=== PATIENT | male | born 1995 | race Caucasian/White ===

== ENCOUNTER 2017-11-09 00:39 | Emergency (ER) | payer BC ==
[~2017-11-09] VITALS: Ht 177.8 cm; Wt 81.8 kg
[2017-11-09 00:44] VITALS: BP 137/88; PULSE 88; TEMP 97.6
== END 2017-11-09 01:36 | disposition home or self-care (01) ==
LOC: COL.ER 00:39
DX: S61.211A Laceration without foreign body of left index finger without damage to nail, initial encounter (principal); W26.9XXA Contact with unspecified sharp object(s), initial encounter; Y92.89 Other specified places as the place of occurrence of the external cause

== ENCOUNTER 2017-11-23 12:58 | Emergency (ER) | payer OTHER ==
[2017-11-23 13:02] VITALS: BP 123/74; PULSE 81; TEMP 97.8
== END 2017-11-23 13:06 | disposition home or self-care (01) ==
LOC: COL.ER 12:58
DX: S61.211D Laceration without foreign body of left index finger without damage to nail, subsequent encounter (principal); X58.XXXD Exposure to other specified factors, subsequent encounter

== ENCOUNTER 2021-05-27 15:22 | Emergency (ER) | payer BC ==
[~2021-05-27] VITALS: Ht 182.9 cm; Wt 84.1 kg
[2021-05-27 15:30] VITALS: TEMP 98.2
[2021-05-27 16:31] LABS: BASO # 0.1 (0.0-0.2); BASO % 0.5 % (0.0-2.0); EOS # 0.1 (0.0-0.7); EOS % 0.7 % (0-4.0); GRAN # 9.4 (1.4-6.5); GRAN % 63.8 % (42.2-75.2); HEMATOCRIT 48.3 % (42.0-52.0); HEMOGLOBIN 17.2 g/dl (13.5-18.0); LYMPH % 26.7 % (20.0-51.0); MEAN CELL VOLUME 87 fl (80.0-100.0); MEAN CORPUSCULAR HEMOGLOBIN 31 pg (27.0-31.0); MEAN CORPUSCULAR HGB CONC 36 g/dl (33.0-37.0); MEAN PLATELET VOLUME 9.8 fl (7.4-10.4); MONO # 1.2 (0.1-0.6); PLATELET COUNT 352 K/mm3 (130-400); RED BLOOD COUNT 5.54 M/mm3 (4.20-5.60); REDCELL DISTRIBUTION WIDTH-CV 12.8 % (11.5-14.5)
[2021-05-27 17:06] LABS: BILIRUBIN,TOTAL 0.8 mg/dL (0.0-1.0); C-REACTIVE PROTEIN 0.7 mg/dL (0.0-0.9); CALCIUM 9.8 mg/dL (8.4-10.2); CREATININE, serum 0.87 (0.66-1.25); POTASSIUM 3.8 mmol/L (3.4-5.0); TOTAL PROTEIN 8.3 gm/dL (6.4-8.2)
[2021-05-27 18:27] VITALS: BP 131/90; PULSE 78
== END 2021-05-27 18:26 | disposition home or self-care (01) ==
LOC: COL.ER 15:22
PROVIDERS: Family Medicine
DX: G89.29 Other chronic pain (principal); R10.9 Unspecified abdominal pain; D72.829 Elevated white blood cell count, unspecified
CPT/HCPCS: C9113; J2060; J2405; J7120; Q9967